=== PATIENT | male | born 1995 | race Caucasian/White ===

== ENCOUNTER 2018-12-24 13:14 | Emergency (ER) | payer OTHER ==
[~2018-12-24] VITALS: Ht 170.2 cm; Wt 70.5 kg
[2018-12-24 13:24] VITALS: BP 138/82; TEMP 98.8
[2018-12-24] MEDS ORDERED: FLONASEALLERGY NAS (14:06)
[2018-12-24] MEDS ORDERED: CLARITIN 1010 MG/TAB PO (14:06)
[2018-12-24] MEDS ORDERED: PATADAY 2.5 ML2.5 ML OU (14:25)
[2018-12-24] MEDS ORDERED: OCUFLOX OPHTH DR5 ML OU (14:25)
[2018-12-24 14:55] VITALS: PULSE 101
== END 2018-12-24 14:55 | disposition home or self-care (01) ==
LOC: COL.ER 13:14
DX: J30.9 Allergic rhinitis, unspecified (principal); B99.9 Unspecified infectious disease; H10.89 Other conjunctivitis; F17.210 Nicotine dependence, cigarettes, uncomplicated; Z79.51 Long term (current) use of inhaled steroids
CPT/HCPCS: J3301